=== PATIENT | female | born 1995 | race Caucasian/White ===

== ENCOUNTER 2024-09-10 10:51 | Emergency (ER) | payer MEDICAID, SELFPAY ==
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
[2024-09-10 11:09] VITALS: BP 123/87; PULSE 91; RESP 20; TEMP 36.8; O2SAT 99; BMI 31.6
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
[2024-09-10 11:44] LABS: Basophils # (Auto) 0.1 Thou/mm3 (0.0-0.2); Basophils % (Auto) 0 % (0-2.5); Eosinophils # (Auto) 0.1 Thou/mm3 (0.0-0.5); Eosinophils % (Auto) 0 % (0-10); Hematocrit 39.6 % (36.0-46.0); Hemoglobin 14.2 g/dL (12.0-16.0); Immature Granulocytes % (Auto) 0 % (0-0); Immature Granulocytes Auto 0.05 Thou/mm3 (0.00-0.00); Lymphocytes # (Auto) 1.8 Thou/mm3 (1.0-4.8); Lymphocytes % (Auto) 14 % (10-50); Mean Corpuscular HGB Conc 35.9 g/dl (31.0-37.0); Mean Corpuscular Hemoglobin 30.8 pg (25.0-35.0); Mean Corpuscular Volume 86 fL (80-100); Monocytes # (Auto) 0.5 Thou/mm3 (0.0-0.8); Monocytes % (Auto) 4 % (0-12); Neutrophils # (Auto) 10.9 Thou/mm3 (1.8-7.7); Neutrophils % (Auto) 82 % (37-80); Nucleated Red Blood Cell % 0 /100 WBC (0); Platelet Count 252 Thou/mm3 (140-440); RDW Standard Deviation 37.7 fL (36.4-46.3); Red Blood Count 4.61 Miln/mm3 (4.00-5.20); White Blood Count 13.4 Thou/mm3 (3.6-11.0)
[2024-09-10 12:07] LABS: Alanine Aminotransferase 49 U/L (10-49); Albumin, Serum 4.6 gm/dL (3.5-5.0); Albumin/Globulin Ratio 1.8 (1.2-2.2); Alkaline Phosphatase 100 U/L (46-116); Anion Gap 12 (7-16); Aspartate Amino Transferase 23 U/L (0-34); BUN/Creatinine Ratio 13 Ratio (12-20); Bilirubin,Total 1.8 mg/dL (0.3-1.2); Blood Urea Nitrogen 8 mg/dL (9-23); Carbon Dioxide 23.1 mMol/L (20.0-31.0); Chloride 104 mMol/L (98-107); Creatinine (Component) 0.6 mg/dL (0.6-1.3); Estimated Creatinine Clearance 151.3 mL/min (>60); Globulin 2.6 gm/dL (2.3-3.5); Glucose 103 mg/dL (74-106); Osmolality,Calculated 275 (275-295); Potassium 3.9 mMol/L (3.4-5.1); Sodium 139 mMol/L (136-145); Total Protein 7.2 gm/dL (5.7-8.2); eGFR > 60 See Note
[2024-09-10 12:49] LABS: Beta HCG,Quantitative 65199 mIU/mL (<5.0)
[2024-09-10] MEDS: ACETAMINOPHEN 500 MG TABLET 1000 MG PO (13:12)
[2024-09-10 13:35] LABS: Collection Type, Urine Clean Catch
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
[2024-09-10 13:49] LABS: Bacteria,Urine Rare; Bilirubin,Urine Negative (Negative); Blood,Urine Trace (Negative); Color,Urine Yellow (Lt Yel-Yel); Glucose, Urine Negative (Negative); Ketones,Urine 1+ (Negative); Leukocyte Esterase,Urine Positive (Negative); Nitrite,Urine Negative (Negative); PH,Urine 6.5 (5.0-7.0); Protein,Urine Trace (Neg - Trace); RBC,Urine 2 /hpf (0-3); Specific Gravity,Urine 1.023 (1.001-1.035); Squamous Epithelial Cell,Urine 21 /hpf (0-5); WBC,Urine 17 /hpf (0-5)
[2024-09-10 13:50] LABS: Clarity,Urine Hazy (Clear/Hazy)
== END 2024-09-10 13:43 | disposition home or self-care (01) ==
PROVIDERS: Nurse Practitioner Family; Emergency Provider Emergency Medicine; PCP Nurse Practitioner Family
DX: O26.891 Other specified pregnancy related conditions, first trimester (principal); R10.2 Pelvic and perineal pain; R51.9 Headache, unspecified; Z3A.10 10 weeks gestation of pregnancy; M54.2 Cervicalgia
CPT/HCPCS: 36415; 76801; 80053; 81001; 84702; 85025; 86900; 86901; 99284; A9270

== ENCOUNTER 2025-01-13 11:04 | Observation (INO) | payer MEDICAID, SELFPAY ==
[2025-01-13 11:08] VITALS: BP 116/71; PULSE 86; RESP 19; RESP 98; TEMP 36.4; BMI 31.4
[2025-01-13 11:09] VITALS: PULSE 91; O2SAT 97
[2025-01-13 11:10] VITALS: BP 116/71; PULSE 88
[2025-01-13 11:14] VITALS: PULSE 91; O2SAT 96
[2025-01-13 11:19] VITALS: PULSE 92; O2SAT 97
[2025-01-13 11:42] VITALS: BP 114/76; PULSE 76
[2025-01-13] MEDS: ACETAMINOPHEN 500 MG TABLET 1000 MG PO (11:43)
== END 2025-01-13 11:49 | disposition home or self-care (01) ==
PROVIDERS: Admitting Provider Specialist; Visit Provider Specialist
DX: O26.892 Other specified pregnancy related conditions, second trimester (principal); Z3A.26 26 weeks gestation of pregnancy; R51.9 Headache, unspecified; R20.2 Paresthesia of skin; R00.2 Palpitations
CPT/HCPCS: 59025; 59899; A9270

== ENCOUNTER 2025-02-22 13:57 | Observation (INO) | payer MEDICAID, SELFPAY ==
[2025-02-22] VITALS (34 sets, daily range): BP systolic 122–132; BP diastolic 66–76; PULSE 92–110; RESP 18–96; TEMP 36.7; O2SAT 96–99; BMI 32.5
--- NOTE | 2025-02-22 14:25 | XR_ITS ---
Examination: Complete OB ultrasound greater than 14 weeks Date and time of exam: February 22, 2025, 1535 hours INDICATIONS: Onset pelvic contractions today Findings: Viable intrauterine single fetus with single amniotic sac presentation cephalic Cardiac motion 135 bpm Placenta anterior maternal right grade 2 Medical cord insertion 3 vessel seen Amniotic fluid index 13.2 cm Cervix 4.5 cm Ovaries obscured by bowel gas. Composite estimated gestational age based on BPD, head circumference, abdominal circumference, femur length is 31 weeks 6 days. Estimated weight 1694.9 g Survey of intracranial anatomy, spinal anatomy, abdominal anatomy, four-chamber heart performed with no abnormalities identified. Impression: Viable intrauterine gestation in cephalic presentation.
[2025-02-22] MEDS: TERBUTALINE SULF INJ 1 MG/ML VIAL 0.25 MG SC (15:12)
[2025-02-22 15:13] LABS: Collection Type, Urine Clean Catch; RBC,Urine 0 /hpf (0-3); WBC,Urine 0 /hpf (0-5)
[2025-02-22 15:31] LABS: Bilirubin,Urine Negative (Negative); Blood,Urine Negative (Negative); Clarity,Urine Clear (Clear/Hazy); Color,Urine Colorless (Lt Yel-Yel); Glucose, Urine Negative (Negative); Ketones,Urine Negative (Negative); Leukocyte Esterase,Urine Negative (Negative); Nitrite,Urine Negative (Negative); PH,Urine 6.5 (5.0-7.0); Protein,Urine Negative (Neg - Trace); Specific Gravity,Urine 1.004 (1.001-1.035); Squamous Epithelial Cell,Urine 2 /hpf (0-5); Urobilinogen,Urine Negative mg/dL (0.0-1.0)
[2025-02-22 15:34] LABS: Creatinine,Random Urine 21 mg/dL (30-125); Protein Total, Random Urine < 6 mg/dL (1-14)
[2025-02-22 16:07] LABS: Basophils # (Auto) 0.1 Thou/mm3 (0.0-0.2); Basophils % (Auto) 1 % (0-2.5); Eosinophils # (Auto) 0.1 Thou/mm3 (0.0-0.5); Eosinophils % (Auto) 1 % (0-10); Hematocrit 32.1 % (36.0-46.0); Hemoglobin 11.3 g/dL (12.0-16.0); Immature Granulocytes Auto 0.13 Thou/mm3 (0.00-0.00); Lymphocytes # (Auto) 2.4 Thou/mm3 (1.0-4.8); Lymphocytes % (Auto) 22 % (10-50); Mean Corpuscular HGB Conc 35.2 g/dl (31.0-37.0); Mean Corpuscular Hemoglobin 31.4 pg (25.0-35.0); Mean Corpuscular Volume 89 fL (80-100); Monocytes # (Auto) 0.6 Thou/mm3 (0.0-0.8); Monocytes % (Auto) 5 % (0-12); Neutrophils # (Auto) 7.6 Thou/mm3 (1.8-7.7); Neutrophils % (Auto) 70 % (37-80); Nucleated Red Blood Cell # 0.00 Thou/mm3 (0.00-0.00); Nucleated Red Blood Cell % 0 /100 WBC (0); Platelet Count 149 Thou/mm3 (140-440); RDW Standard Deviation 41.5 fL (36.4-46.3); Red Blood Count 3.60 Miln/mm3 (4.00-5.20); White Blood Count 10.9 Thou/mm3 (3.6-11.0)
[2025-02-22 16:18] LABS: Fibrinogen 532 mg/dL (175-375); INR 1.0 (0.9-1.3); Partial Thromboplastin Time 23.6 Seconds (22.0-36.0); Prothrombin Time 10.3 Seconds (9.0-12.2)
[2025-02-22 16:21] LABS: Alanine Aminotransferase 7 U/L (10-49); Albumin, Serum 3.8 gm/dL (3.5-5.0); Albumin/Globulin Ratio 1.7 (1.2-2.2); Alkaline Phosphatase 107 U/L (46-116); Anion Gap 9 (7-16); Aspartate Amino Transferase 13 U/L (0-34); BUN/Creatinine Ratio 12 Ratio (12-20); Bilirubin,Total 1.2 mg/dL (0.3-1.2); Blood Urea Nitrogen 6 mg/dL (9-23); Calcium 9.1 mg/dL (8.3-10.6); Calcium (Corrected) 9.3 mg/dL (8.5-10.1); Carbon Dioxide 23.3 mMol/L (20.0-31.0); Chloride 107 mMol/L (98-107); Creatinine (Component) 0.5 mg/dL (0.6-1.3); Estimated Creatinine Clearance 190.8 mL/min (>60); Globulin 2.2 gm/dL (2.3-3.5); Glucose 102 mg/dL (74-106); Osmolality,Calculated 275 (275-295); Potassium 3.5 mMol/L (3.4-5.1); Sodium 139 mMol/L (136-145); Total Protein 6.0 gm/dL (5.7-8.2); Uric Acid 3.5 mg/dL (3.1-7.8); eGFR > 60 See Note
[2025-02-22 16:51] LABS: LDH (Lactate Dehydrogenase) 162 U/L (120-246)
[2025-02-22] MEDS: BETAMET ACET/BETAMET NA PH (Celestone) 6 MG/ML VIAL 12 MG IM (16:58)
== END 2025-02-22 17:07 | disposition home or self-care (01) ==
PROVIDERS: Admitting Provider Specialist; Visit Provider Specialist
DX: O47.03 False labor before 37 completed weeks of gestation, third trimester (principal); Z3A.31 31 weeks gestation of pregnancy
CPT/HCPCS: 36415; 59025; 59899; 76805; 80053; 81001; 82570; 82731; 83615; 84156; 84550; 85025; 85384; 85610; 85730; 96372; J0702; J3105

== ENCOUNTER 2025-02-23 16:58 | Outpatient (CLI) | payer MEDICAID, SELFPAY ==
[2025-02-23] VITALS (8 sets, daily range): BP systolic 119; BP diastolic 75; PULSE 70–84; RESP 17–99; TEMP 36.9; O2SAT 93–100; BMI 32.3
[2025-02-23] MEDS: BETAMET ACET/BETAMET NA PH (Celestone) 6 MG/ML VIAL 12 MG IM (17:48)
== END 2025-02-23 18:00 | disposition home or self-care (01) ==
LOC: S4S1 17:02 → S4SX 17:03
PROVIDERS: Referring Provider Specialist; Visit Provider Specialist
DX: Z34.83 Encounter for supervision of other normal pregnancy, third trimester (principal); Z3A.32 32 weeks gestation of pregnancy
CPT/HCPCS: 59025; 96372; J0702

== ENCOUNTER 2025-03-24 11:54 | Outpatient (CLI) | payer MEDICAID, SELFPAY ==
[2025-03-24] VITALS (7 sets, daily range): BP systolic 129; BP diastolic 67; PULSE 96–103; RESP 16–98; TEMP 36.8; O2SAT 97–99; BMI 32.8
== END 2025-03-24 12:57 | disposition home or self-care (01) ==
LOC: S4S1 11:56 → S4SX 11:57
PROVIDERS: Referring Provider Specialist; Visit Provider Specialist
DX: Z34.90 Encounter for supervision of normal pregnancy, unspecified, unspecified trimester (principal); Z36.89 Encounter for other specified antenatal screening; Z3A.00 Weeks of gestation of pregnancy not specified
CPT/HCPCS: 59025

== ENCOUNTER 2025-03-31 12:34 | Observation (INO) | payer MEDICAID, SELFPAY ==
[2025-03-31 12:58] VITALS: BP 137/85; PULSE 120; RESP 18; RESP 99; TEMP 36.7; BMI 32.4
[2025-03-31 13:35] VITALS: BP 124/78; PULSE 97
[2025-03-31] MEDS: RINGERS LACTATED 1000 ML 1,000 ML 999 ML IV (16:08)
[2025-03-31] MEDS: ACETAMINOPHEN 500 MG TABLET 1000 MG PO (17:22)
== END 2025-03-31 18:15 | disposition home or self-care (01) ==
PROVIDERS: Admitting Provider Obstetrics & Gynecology; PCP Nurse Practitioner Family; Visit Provider Obstetrics & Gynecology
DX: Z34.83 Encounter for supervision of other normal pregnancy, third trimester (principal); Z3A.37 37 weeks gestation of pregnancy
CPT/HCPCS: 59025; 59899; J7120; A9270

== ENCOUNTER 2025-04-02 14:55 | Observation (INO) | payer MEDICAID, SELFPAY ==
[2025-04-02] VITALS (37 sets, daily range): BP systolic 121–141; BP diastolic 74–86; PULSE 82–129; RESP 19–98; TEMP 36.8; O2SAT 93–98; BMI 45.7
--- NOTE | 2025-04-02 15:43 | XR_ITS ---
Examination: Biophysical profile, ultrasound Date and time of exam: April 02, 2025, 1601 hours INDICATIONS: Diagnosis gestational diabetes, diagnosis hyperglycemia Technique: Multiple transabdominal sonographic images of the pelvis abdomen obtained. Attention is directed to the breathing movement, gross body movement, amniotic fluid volume and tone. Findings: Amniotic fluid index 5.6 cm Total biophysical profile is 8 of 8. breathing movement is 2. Gross body movement is 2. tone is 2. Qualitative amniotic fluid volume is 2 Impression: Biophysical profile is 8 of 8.
[2025-04-02 16:54] LABS: Collection Type, Urine Clean Catch
[2025-04-02 17:04] LABS: Basophils # (Auto) 0.0 Thou/mm3 (0.0-0.2); Basophils % (Auto) 0 % (0-2.5); Eosinophils # (Auto) 0.1 Thou/mm3 (0.0-0.5); Eosinophils % (Auto) 1 % (0-10); Hematocrit 32.0 % (36.0-46.0); Hemoglobin 11.4 g/dL (12.0-16.0); Immature Granulocytes Auto 0.09 Thou/mm3 (0.00-0.00); Lymphocytes # (Auto) 1.8 Thou/mm3 (1.0-4.8); Lymphocytes % (Auto) 18 % (10-50); Mean Corpuscular HGB Conc 35.6 g/dl (31.0-37.0); Mean Corpuscular Hemoglobin 31.1 pg (25.0-35.0); Mean Corpuscular Volume 87 fL (80-100); Monocytes # (Auto) 0.7 Thou/mm3 (0.0-0.8); Monocytes % (Auto) 7 % (0-12); Neutrophils # (Auto) 7.4 Thou/mm3 (1.8-7.7); Neutrophils % (Auto) 74 % (37-80); Nucleated Red Blood Cell # 0.00 Thou/mm3 (0.00-0.00); Nucleated Red Blood Cell % 0 /100 WBC (0); Platelet Count 144 Thou/mm3 (140-440); RDW Standard Deviation 41.4 fL (36.4-46.3); Red Blood Count 3.66 Miln/mm3 (4.00-5.20); White Blood Count 10.0 Thou/mm3 (3.6-11.0)
[2025-04-02 17:06] LABS: Bacteria,Urine Rare; Bilirubin,Urine Negative (Negative); Blood,Urine Negative (Negative); Clarity,Urine Clear (Clear/Hazy); Color,Urine Lt-Yellow (Lt Yel-Yel); Culture Indicated,Urine Not Indicated; Glucose, Urine 3+ (Negative); Ketones,Urine Negative (Negative); Leukocyte Esterase,Urine Positive (Negative); Nitrite,Urine Negative (Negative); PH,Urine 7.0 (5.0-7.0); Protein,Urine Negative (Neg - Trace); RBC,Urine 1 /hpf (0-3); Specific Gravity,Urine 1.011 (1.001-1.035); Squamous Epithelial Cell,Urine 4 /hpf (0-5); Urobilinogen,Urine Negative mg/dL (0.0-1.0); WBC,Urine 2 /hpf (0-5)
[2025-04-02 17:12] LABS: INR 1.0 (0.9-1.3); Partial Thromboplastin Time 23.4 Seconds (22.0-36.0); Prothrombin Time 10.3 Seconds (9.0-12.2)
[2025-04-02 17:13] LABS: Creatinine,Random Urine 50 mg/dL (30-125); Protein Total, Random Urine 8 mg/dL (1-14)
[2025-04-02 17:16] LABS: Albumin, Serum 4.0 gm/dL (3.5-5.0); Albumin/Globulin Ratio 1.5 (1.2-2.2); Alkaline Phosphatase 155 U/L (46-116); Anion Gap 12 (7-16); Aspartate Amino Transferase 11 U/L (0-34); BUN/Creatinine Ratio 14 Ratio (12-20); Bilirubin,Total 1.1 mg/dL (0.3-1.2); Blood Urea Nitrogen 7 mg/dL (9-23); Calcium 9.0 mg/dL (8.3-10.6); Calcium (Corrected) 9.0 mg/dL (8.5-10.1); Carbon Dioxide 20.7 mMol/L (20.0-31.0); Chloride 106 mMol/L (98-107); Creatinine (Component) 0.5 mg/dL (0.6-1.3); Estimated Creatinine Clearance 157.7 mL/min (>60); Globulin 2.7 gm/dL (2.3-3.5); Glucose 94 mg/dL (74-106); LDH (Lactate Dehydrogenase) 138 U/L (120-246); Osmolality,Calculated 275 (275-295); Potassium 3.3 mMol/L (3.4-5.1); Sodium 139 mMol/L (136-145); Total Protein 6.7 gm/dL (5.7-8.2); Uric Acid 4.0 mg/dL (3.1-7.8); eGFR > 60 See Note
[2025-04-02 17:23] LABS: Alanine Aminotransferase 8 U/L (10-49)
== END 2025-04-02 17:58 | disposition home or self-care (01) ==
PROVIDERS: Admitting Provider Obstetrics & Gynecology; Visit Provider Obstetrics & Gynecology
DX: O26.893 Other specified pregnancy related conditions, third trimester (principal); Z3A.37 37 weeks gestation of pregnancy; R73.9 Hyperglycemia, unspecified; R51.9 Headache, unspecified; R00.0 Tachycardia, unspecified
CPT/HCPCS: 36415; 59025; 59899; 76819; 80053; 81001; 82570; 83615; 84156; 84550; 85025; 85610; 85730

== ENCOUNTER 2025-04-12 14:09 | Inpatient (IN) | payer MEDICAID, SELFPAY ==
--- NOTE | 2025-04-11 07:46 | PC.NURSE ---
1930- Received call from patient regarding induction. Notified moss picker. moss picker states for patient to call back at 1999. Rn made patient to call unit back at 1999. Patient states positive movement. Denies leaking, vaginal bleeding, or contractions. Labor precautions and kick counts reviewed with patient. Patient states understanding.
[2025-04-12] VITALS (7 sets, daily range): BP systolic 100–119; BP diastolic 57–74; PULSE 75–85; RESP 17–18; TEMP 36.6–36.8; BMI 32.5
--- NOTE | 2025-04-12 08:13 | PC.NURSE ---
PT ON PHONE, ASKED FOR BED AVAILABILITY FOR IOL, INFORMED OF NO BEDS AVAILABLE AT THIS TIME, WILL CALL ONCE BED BECOMES AVAILABLE, EDUCATED ON KICK COUNT AND LABOR PRECAUTIONS, ASKED TO CALL BACK AT 1700, PT VERBALIZED UNDERSTANDING
--- NOTE | 2025-04-12 14:51 | PC.NURSE ---
LATE ENTRY: THIS RN HAD CALLED PT AT 1328 TO COME IN FOR IOL, TO BE HERE BY 1430
--- NOTE | 2025-04-12 15:15 | XR_ITS ---
Examination: Complete OB ultrasound greater than 14 weeks Date and time of exam: April 12, 2025, 1648 hours INDICATIONS: Preop labor induction today Findings: Viable intrauterine single fetus with single amniotic sac presentation cephalic Cardiac motion 144 bpm Placenta anterior grade 3 Medical cord insertion seen Amniotic fluid index 10.1 cm Cervix ovaries obscured by bowel gas. Composite estimated gestational age based on BPD, head circumference, abdominal circumference, femur length is 38 weeks 5 days, estimated weight 3572.5 g. Survey of intracranial anatomy, spinal anatomy, abdominal anatomy, four-chamber heart performed with no abnormalities identified. Impression: Viable intrauterine gestation cephalic presentation.
[2025-04-12 15:31] LABS: Basophils # (Auto) 0.0 Thou/mm3 (0.0-0.2); Basophils % (Auto) 0 % (0-2.5); Eosinophils # (Auto) 0.1 Thou/mm3 (0.0-0.5); Eosinophils % (Auto) 1 % (0-10); Hematocrit 34.8 % (36.0-46.0); Hemoglobin 12.0 g/dL (12.0-16.0); Immature Granulocytes Auto 0.08 Thou/mm3 (0.00-0.00); Lymphocytes # (Auto) 2.4 Thou/mm3 (1.0-4.8); Lymphocytes % (Auto) 20 % (10-50); Mean Corpuscular HGB Conc 34.5 g/dl (31.0-37.0); Mean Corpuscular Hemoglobin 30.4 pg (25.0-35.0); Mean Corpuscular Volume 88 fL (80-100); Monocytes # (Auto) 0.5 Thou/mm3 (0.0-0.8); Monocytes % (Auto) 5 % (0-12); Neutrophils # (Auto) 8.6 Thou/mm3 (1.8-7.7); Neutrophils % (Auto) 74 % (37-80); Nucleated Red Blood Cell # 0.00 Thou/mm3 (0.00-0.00); Nucleated Red Blood Cell % 0 /100 WBC (0); Platelet Count 172 Thou/mm3 (140-440); RDW Standard Deviation 42.2 fL (36.4-46.3); Red Blood Count 3.95 Miln/mm3 (4.00-5.20); White Blood Count 11.7 Thou/mm3 (3.6-11.0)
[2025-04-12 16:01] LABS: Fibrinogen 442 mg/dL (175-375); INR 1.0 (0.9-1.3); Partial Thromboplastin Time 24.4 Seconds (22.0-36.0); Prothrombin Time 10.3 Seconds (9.0-12.2)
[2025-04-12 16:07] LABS: Alanine Aminotransferase 7 U/L (10-49); Albumin, Serum 4.0 gm/dL (3.5-5.0); Albumin/Globulin Ratio 1.4 (1.2-2.2); Alkaline Phosphatase 191 U/L (46-116); Anion Gap 13 (7-16); Aspartate Amino Transferase 13 U/L (0-34); BUN/Creatinine Ratio 10 Ratio (12-20); Bilirubin,Total 1.3 mg/dL (0.3-1.2); Blood Urea Nitrogen < 5 mg/dL (9-23); Calcium 9.1 mg/dL (8.3-10.6); Calcium (Corrected) 9.1 mg/dL (8.5-10.1); Carbon Dioxide 19.8 mMol/L (20.0-31.0); Chloride 104 mMol/L (98-107); Creatinine (Component) 0.5 mg/dL (0.6-1.3); Estimated Creatinine Clearance 189.3 mL/min (>60); Globulin 2.9 gm/dL (2.3-3.5); Glucose 134 mg/dL (74-106); LDH (Lactate Dehydrogenase) 156 U/L (120-246); Osmolality,Calculated 273 (275-295); Potassium 3.4 mMol/L (3.4-5.1); Sodium 137 mMol/L (136-145); Total Protein 6.9 gm/dL (5.7-8.2); Uric Acid 3.1 mg/dL (3.1-7.8); eGFR > 60 See Note
--- NOTE | 2025-04-12 16:23 | PD.ADDHP ---
Addendum History & Physical Addendum Date of report being addended: 04/12/25 Narrative: No changes in H and P exam or history. BP 110/71 HR 85. RR 16. T afebrile
[2025-04-12 16:39] LABS: Syphilis Nonreactive (Nonreactive)
[2025-04-12 18:31] LABS: Collection Type, Urine Clean Catch
[2025-04-12 18:46] LABS: Bacteria,Urine Rare; Bilirubin,Urine Negative (Negative); Blood,Urine Negative (Negative); Clarity,Urine Turbid (Clear/Hazy); Color,Urine Lt-Yellow (Lt Yel-Yel); Glucose, Urine Negative (Negative); Ketones,Urine 1+ (Negative); Leukocyte Esterase,Urine Positive (Negative); Nitrite,Urine Negative (Negative); PH,Urine 7.0 (5.0-7.0); Protein,Urine Negative (Neg - Trace); RBC,Urine 1 /hpf (0-3); Specific Gravity,Urine 1.010 (1.001-1.035); Squamous Epithelial Cell,Urine 13 /hpf (0-5); Urobilinogen,Urine 2.0 mg/dL (0.0-1.0); WBC,Urine 37 /hpf (0-5)
[2025-04-12 18:51] LABS: Creatinine,Random Urine 45 mg/dL (30-125); Protein Total, Random Urine 14 mg/dL (1-14)
[2025-04-13] VITALS (145 sets, daily range): BP systolic 99–140; BP diastolic 54–87; PULSE 54–95; RESP 16–20; TEMP 36.4–37; O2SAT 97–100
[2025-04-13] MEDS: RINGERS LACTATED 1000 ML 1,000 ML 100 ML IV ×4 (00:34→08:09)
--- NOTE | 2025-04-13 05:45 | PD.LDPN ---
Documentation for date of: 04/13/25 OB Labor Progress Note Pelvic Exam Dilation (cm): 2.5 Effacement (%): 50 station: -3 Amniotic membrane status: Intact Contractions Monitor mode: External Contraction frequency: 3-6 Contraction intensity: Mild Status status: Category l Assessment and Plan Comments: Epidural Induction on going Anticipate Maintain blood sugar less than 110, sliding scale insulin prn. History of Present Illness HPI complains of labor pains desires epidural
[2025-04-13] MEDS: ESCITALOPRAM OXALATE 10 MG TABLET PO (10:09)
[2025-04-13] MEDS: OXYTOCIN in NS 20 units 20 UNIT/1,000 ML BAG 125 UNIT IV (10:30)
[2025-04-13] MEDS: LIDOCAINE HCL 1% 20 ML VIAL INFL (10:32)
[2025-04-13] MEDS: BENZO/LANO/ALOE (Dermoplast) 60 GM CAN 1 SPRAY TOP (10:36)
--- NOTE | 2025-04-13 11:01 | OBDSUM_ITS ---
Data (Jimenez) Data Hx Section: No : 5 Term: 1 : 1 Livin Abortions: Spontaneous & Theraputic: 2 Delivery Data (Jimenez) Labor Data Initiation of labor: Induction Induction/Augmentation Agent: Cervidil and Artificial ROM ROM date: 04/13/25 ROM time: 10:22 Amniotic membrane rupture type: Artificial Amniotic fluid description: Clear Delivery Data EDC: 04/20/25 EDC calculated by:: LMP/early US confirmation Onset of labor date: 04/13/25 Onset of labor time: 06:00 Complete dilation date: 04/13/25 Complete dilation time: 10:21 delivery date: 04/13/25 delivery time: 10:29 Gestational age (weeks): 39 Gestational age (days): 0 Placenta delivery date: 04/13/25 Placenta delivery time: 10:41 Stage 1 total time: Labor - Stage 1 Duration 4 hours and 21 minutes Delivered by: Reyes Munroe Delivery nurse: SONY Bonilla Neworn nurse: SONY Aguilera Exhaust Emissions Automotive Technician at delivery: No Support person(s) at delivery: FOB Other staff at delivery: Eleanor Herrera patient service associate Method Delivery method: Normal Vaginal Delivery Presentation: Vertex position: OA Anesthesia Type Anesthesia Type: Local and Epidural Placenta Placenta delivery description: Spontaneous Cord blood sent to lab: Yes cord blood collection: Cord Blood Type Episiotomy Episiotomy description: None Lacerations #1: Labial: left 2nd degree EBL Estimated blood loss (ml): 250 Umbilical Cord cord description: Nuchal Cord Additional Procedures None Complications Complications: None Data (Jimenez) [place] Data order: 1 [place]'s gender: Female Identification band number: [id number] 1 minute: 8 5 minutes: 9 Additional Comments Additional comments: See RN notes for weight
[2025-04-13] MEDS: IBUPROFEN TAB 400 MG TABLET 800 MG PO (16:10)
[2025-04-13 21:32] LABS: Basophils # (Auto) 0.1 Thou/mm3 (0.0-0.2); Basophils % (Auto) 0 % (0-2.5); Eosinophils # (Auto) 0.1 Thou/mm3 (0.0-0.5); Eosinophils % (Auto) 1 % (0-10); Hematocrit 32.0 % (36.0-46.0); Hemoglobin 11.0 g/dL (12.0-16.0); Immature Granulocytes Auto 0.08 Thou/mm3 (0.00-0.00); Lymphocytes # (Auto) 2.7 Thou/mm3 (1.0-4.8); Lymphocytes % (Auto) 19 % (10-50); Mean Corpuscular HGB Conc 34.4 g/dl (31.0-37.0); Mean Corpuscular Hemoglobin 30.4 pg (25.0-35.0); Mean Corpuscular Volume 88 fL (80-100); Monocytes # (Auto) 0.8 Thou/mm3 (0.0-0.8); Monocytes % (Auto) 5 % (0-12); Neutrophils # (Auto) 10.5 Thou/mm3 (1.8-7.7); Neutrophils % (Auto) 74 % (37-80); Nucleated Red Blood Cell # 0.00 Thou/mm3 (0.00-0.00); Nucleated Red Blood Cell % 0 /100 WBC (0); Platelet Count 148 Thou/mm3 (140-440); RDW Standard Deviation 41.9 fL (36.4-46.3); Red Blood Count 3.62 Miln/mm3 (4.00-5.20); White Blood Count 14.2 Thou/mm3 (3.6-11.0)
[2025-04-14 01:06] VITALS: BP 92/60; PULSE 75; RESP 14; TEMP 36.9; O2SAT 98
[2025-04-14] MEDS: IBUPROFEN TAB 400 MG TABLET 800 MG PO (01:13)
[2025-04-14 04:04] VITALS: BP 113/54; PULSE 77; RESP 18; TEMP 36.6; O2SAT 98
[2025-04-14 08:00] VITALS: BP 104/65; PULSE 72; RESP 18; TEMP 36.7; O2SAT 98
--- NOTE | 2025-04-14 08:31 | ESDS_ITS ---
DS: Providers Provider Date of admission: 04/12/25 14:09 Primary care physician: Aure Segal NP Admitting Provider: Reyes Munroe MD Attending Provider on Admission: Reyes Munroe MD Consults: 04/13/25 11:50 Referral Routine Comment: Attending Provider on DC: Reyes Munroe MD Discharging Provider: Reyes Munroe MD DS: Diagnosis Problem List Completed Was Problem List Reviewed/Reconciled?: Yes Summary/Hosp Course Brief History: complains of labor pains desires epidural Peripartum Data Delivery Method: Normal Vaginal Delivery Episiotomy Description: None Time Spent with Patient Time attestation: Total time spent providing and/or coordinating discharge services: Exam Vital Signs Temp Pulse Resp BP Pulse Ox O2 Del Method 97.8 F 77 18 113/54 L 98 Room Air 04/14/25 04:04 04/14/25 04:04 04/14/25 04:04 04/14/25 04:04 04/14/25 04:04 04/14/25 04:04 Discharge Plan Plan Patient Disposition: HOME (Self Care) Patient condition on transfer: Stable Prescriptions/Referrals Prescriptions/Med Rec: Continued PNV no.[id number]-[id number] fumarate-FA [] 28 mg iron- 800 mcg tablet 1 tab PO DAILY escitalopram oxalate [Lexapro] 10 mg Tablet 10 mg PO QDAY Discontinued glyburide 2.5 mg tablet 2.5 mg PO .am Patient Comments: TAKE 1 TABLET BY MOUTH EVERY MORNING DIRECTED WITH BREAKFAST aspirin 81 mg tablet,delayed release (DR/EC) Patient Comments: TAKE 1 TABLET BY MOUTH EVERY DAY (DME) FreeStyle Lite Strips Strip Patient Comments: USE 1 STRIP VIA METER FOUR TIMES A DAY DIRECTED TO CHECK BLOOD SUGAR (DME) blood-glucose meter [FreeStyle Lite Meter] Kit Patient Comments: PLEASE SEE ATTACHED FOR DETAILED DIRECTIONS Referrals: Aure Segal NP [Primary Care Provider] Patient/Caregiver Discharge Instructions Discharge Activity: activity as tolerated Other Discharge Activity Instructions:: Follow up office 6 weeks Print Language: [place] Islander Stand Alone Forms: Jasmyn Award Info., Patient Portal Info Letter Discharge Order Discharge Orders: Discharge (Routine); Ordered 04/14/25 Ordered By: Reyes Munroe Planned Discharge Date 04/14/25
[2025-04-14] MEDS: ESCITALOPRAM OXALATE 10 MG TABLET PO (08:33)
--- NOTE | 2025-04-14 09:19 | ESPR_ITS ---
RE: REGGIE DOMINGUEZ : 1995 DATE OF SERVICE: 04/14/25 SUBJECTIVE: day #1. Patient denies any problem or complaints. She is voiding. She is ambulating. She is tolerating a diet. She is passing flatus. She denies any excessive vaginal bleeding. She denies any dizziness or lightheadedness. She denies any chest pain, palpitations, shortness of breath, or lower extremity pain. She reports that her mood is stable on the generic Lexapro. OBJECTIVE: VITAL SIGNS: Blood pressure 113/54; heart rate 77; respirations 18; temperature 97.8; pulse oximetry 98% on room air. LUNGS: Clear to auscultation bilaterally. HEART: Regular rate and rhythm. ABDOMEN: Fundus is firm. EXTREMITIES: Nontender. LABORATORY DATA: Hemoglobin pre-delivery is 12.0, post delivery is 11.0. ASSESSMENT: 1. day #1, status post spontaneous vaginal delivery. 2. Gestational diabetes mellitus class A2. PLAN: No longer needs to follow the diabetic diet or check her sugars at home. We will check her for diabetes 6 weeks . DT: 08:26:23 TT: 09:18:00 Ref: [id number] - TID: [id number]
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
--- NOTE | 2025-04-14 11:58 | PC.NURSE ---
Patient cleared by Shiva in medical social worker
== END 2025-04-14 12:30 | disposition home or self-care (01) | DRG 560 ==
LOC: S4SX 04-13 12:01 → S4NX 04-13 15:56
PROVIDERS: Admitting Provider Specialist; PCP Nurse Practitioner Family; Visit Provider Specialist
DX: O24.429 Gestational diabetes mellitus in childbirth, unspecified control (principal); O69.81X0 Labor and delivery complicated by cord around neck, without compression, not applicable or unspecified; Z37.0 Single live birth; Z3A.39 39 weeks gestation of pregnancy; O70.0 First degree perineal laceration during delivery
CPT/HCPCS: 36415; 59409; 76805; 80053; 81001; 82570; 83615; 84156; 84550; 85025; 85384; 85610; 85730; 86780; 86850; 86900; 86901; 87086; 94762; J2590; J2795; J3010; J3490; J7120; A9270